=== PATIENT | female | born 1985 | race Caucasian/White ===

== ENCOUNTER 2017-06-28 13:06 | Emergency (ER) | payer OTHER ==
[2017-06-28 13:53] VITALS: BP 110/60
--- NOTE | 2017-06-28 14:47 | UC ---
Back Pain HPI - HPI Summary HPI Summary: Per GURMEET krishna "L SCIATIC NERVE PAIN SINCE YESTERDAY. USING ICE ALTERNATING WITH HEAT WITH MINOR RELIEF." SHe is here w/ her . sx staretd yesterday while she was walking while doing chores caring for their 7 horses. Has had this before. she is 16 wks (1st ). took 1000mgs APAP this AM w/o much relief. pain /. pain radiates into left buttocks, down the side of her thigh, down her calf to just above ankle. + numbing/tingling. no loss bowel/ bladder. no saddle anesthesia sx. - History of Current Complaint Chief Complaint: UCBackPain Stated Complaint: SCIATICA Time Seen by Provider: 06/28/17 14:32 - Allergies/Home Medications Allergies/Adverse Reactions: Allergies Allergy/AdvReac Type Severity Reaction Status Date / Time No Known Allergies Allergy Verified 06/28/17 13:53 PMH/Surg Hx/FS Hx/Imm Hx Previously Healthy: Yes - Surgical History Surgical History: None - Family History Known Family History: Positive: Hypertension Family History: NON CONTRIBUTORY - Social History Alcohol Use: Occasionally Substance Use Type: None Smoking Status (MU): Never Smoked Tobacco - Immunization History Most Recent Influenza Vaccination: NOT CURRENT Review of Systems Constitutional: Negative Skin: Negative Eyes: Negative ENT: Negative Respiratory: Negative Cardiovascular: Negative Gastrointestinal: Negative Genitourinary: Negative Motor: Negative Neurovascular: Negative Musculoskeletal: Negative Neurological: Negative Psychological: Negative Is Patient Immunocompromised?: No All Other Systems Reviewed And Are Negative: Yes Physical Exam Triage Information Reviewed: Yes Appearance: Well-Nourished, Pain Distress Vital Signs: Initial Vital Signs Temp 98.7 F 06/28/17 13:48 Pulse 84 06/28/17 13:48 Resp 18 06/28/17 13:48 BP 110/60 06/28/17 13:48 Pulse Ox 100 06/28/17 13:48 Vital Signs Reviewed: Yes Respiratory Exam: Normal Respiratory: Positive: Lungs clear Cardiovascular Exam: Normal Cardiovascular: Positive: RRR, No Murmur Musculoskeletal Exam: Normal Musculoskeletal: Positive: Strength Intact, Other: - spine NT, increased pain w / flexion, some relief w/ extension. + ipsilateral SLR, neg contralateral. + 1 B /L patellar and equal reflexes. Strength intact. Neurological Exam: Normal Psychological Exam: Normal Skin Exam: Normal Back Pain Course/Dx - Course Course Of Treatment: No xrays or muscle relxant d/t . can cont w/ APAP. showed several exercises. start w/ extensions. states she is in too much pain to do piriformis stretches yet. PT would be a good idea, can ask PCP for referral. - Differential Dx/Diagnosis Differential Diagnosis/HQI/PQRI: Cauda Equina Syndrome, Compressive Cord Syndrome, Strain, Sprain Provider Diagnoses: Sciatica Discharge - Discharge Plan Condition: Stable Disposition: HOME Patient Education Materials: Sciatica (ED), Piriformis Syndrome (ED), Lower Back Exercises (ED) Referrals: Hermes Carrizales MD [Primary Care Provider] - Bruce Lazo MD [Medical Doctor] - Additional Instructions: Please continue taking the tylenol for the pain. Ice 20 mins on/20 mins off. We talked abuot doing gentle back extensions. As your pain improves over the next few days, you can add more stretches in, especially the piriformis stretch I showed you.
== END 2017-06-28 15:05 | disposition home or self-care (01) ==
LOC: UCCORT 13:06
DX: B34.9 Viral infection, unspecified (principal); J02.9 Acute pharyngitis, unspecified; R51 Headache
CPT/HCPCS: 99211; G0463

== ENCOUNTER 2017-12-11 08:45 | Inpatient (IN) | payer OTHER ==
--- NOTE | 2017-12-11 10:08 | HP ---
General Information - General Information Maternal Age: 32 Grav: 1 Para: 0 SAB: 0 IEA: 0 Estimated Due Date: 12/16/17 Determined By: Early Ultrasound Gestational Age in Weeks and Days: 39 Weeks and 2 Days Maternal Blood Type and Rh: A Negative - Results this Serology/RPR Result: Non-Reactive Rubella Result: Immune HBsAg Result: Negative HIV Result: Negative GBS Culture Result: Negative Past Medical History Delivery History: See Records - Primip Pertinent Past Medical History: Non-Contributory - migrain, back pain Pertinent Past Surgical History: None Pertinent Family History: Non-Contributory - Antepartal Records Antepartal Records: Reviewed, Complicated by: - IUGR, Rh -, CF carrier , Rubella equivocal Review of Systems Constitutional: Comfortable CV Complaint: No Respiratory: Shortness of Breath: No Gastrointestinal: No Nausea/Vomiting, Normal Bowel Movement Genitourinary: Leaking Fluid, No Dysuria, No Bleeding Musculoskeletal: No Complaint, Contractions Neurological: No Headache Movement: Normal Exam Allergies/Adverse Reactions: Allergies No Known Allergies Allergy (Verified 06/28/17 13:53) T-98.4, P-78, R-20, BP- 127/71, O2-99 - Measurements Height: 5 ft 6.75 in Weight: 107.501 kg Weight in lbs: [phone] Body Mass Index (BMI): 37.3 Pre- Weight: 109.769 kg Weight Gained This : -5 lbs and 0 ozs - Exam Abdomen: No Upper Quadrant Pain Breast: Breast Exam Deferred CVA: No CVA Tenderness Extremities: Edema - trace pedal edema, nonpitting Heart: Normal Rhythm/Heart Sounds HEENT: No Significant Findings Lungs: Clear Bilaterally Rectal: Rectal Exam Deferred Reflexes: DTR 2+ Thyroid: No Thyromegaly - Abdominal Exam Abdomen Exam: Non-Tender Abdomen Exam Comment: Fundal heaight, S<D, prior suspected IUGR - Ultrasound/Biophysical Profile Ultrasound Status: Not Done - sono done in office today, confirmed vertex position Targeted Exam Findings See L&D Outpatient Visit Provider Note for Findings: N/A Estimated Weight: 6# Membrane Status: SROM Amniotic Fluid Evaluation: Gross Rupture Bleeding/Discharge: None - Cervical exam deferred at this time EFM Findings - External Monitor Findings Baseline Heart Rate: 140 External Monitor Findings: Accelerations Present, No Pattern of Variable or Late Decelerations, Variability Moderate, Baseline Stable Contractions: Regular, Mild, 45-90 Seconds Contraction Frequency: 2-5 Assessment/Plan - Reason for Visit Reason for Visit: Pt experienced gross ROM of clear fluid at 0550 today. - Obstetrical Risk Factors Risk Factors Comment: suspected IUGR - Plan Plan: Early Labor - Date/Time of Admission Date of Admission: 12/11/17 Time of Admission: 09:45
[2017-12-11] MEDS ORDERED: Buffered Lidocaine 0.9% SYRIN* 5 ML/SYR SYRINGE ONE (13:47)
[2017-12-11] MEDS ORDERED: OXYTOCIN* 10 UNITS/ML 1 ML VIAL IM ONE (16:21)
[2017-12-11] MEDS ORDERED: Glycerin ADULT SUPP PR PRN (16:21)
[2017-12-11] MEDS ORDERED: Acetaminophen TAB* 325 MG PO PRN (16:21)
[2017-12-11] MEDS ORDERED: Witch Hazel PAD* JAR TOPICAL PRN (16:21)
[2017-12-11] MEDS ORDERED: Dibucaine 1% 28.35 GM TUBE PR PRN (16:21)
[2017-12-11] MEDS ORDERED: Measles, Mumps,Rubella VACC* 0.5 ML/VIAL SUBCUT ONE (16:21)
[2017-12-11] MEDS ORDERED: Ibuprofen TAB* 600 MG PO PRN (16:21)
[2017-12-11] MEDS ORDERED: OXYTOCIN* 10 UNITS/ML 1 ML VIAL ONE (16:48)
[2017-12-11] MEDS ORDERED: Docusate CAP* 100 MG PO SCH (21:00)
--- NOTE | 2017-12-12 06:32 | PROCNOTE ---
[facility] OB: Delivery Note - Delivery A Date of : 12/11/17 Time of : 15:30 [place] Sex: Male Weight at : 2.814 kg Score 1 Minute: 9 Score 5 Minutes: 10 Gestational Age in Weeks and Days at Delivery: 39 Weeks and 2 Days Delivery Method: Spontaneous Vaginal Labor: Spontaneous Did Patient attempt ?: N/A, No Previous Amniotic Fluid: Clear Estimated Blood Loss: 350 Anesthesia/Analgesia: None, Nitrous-Labor - for 20 minutes only Delivered By: Gabrielle Okeefe - Nursery Level of Nursery: Regular/Bedside - Perineum Perineal Injury: Vaginal Laceration, 1st Degree Perineal Injury Comment: bilat labial with right side only repaired Perineal Repair: By Delivering Practioner - Events Delivery Events of Note: Pitocin Only After Delivery - Additional Delivery Notes Additional Delivery Notes: Pt admitted to labor and delivery with SROM of clear fluid at 39 2/7 weeks gestation. Labor began spontaneously soon after and patient progressed to full dilation. She used nitrous oxide briefly but did not like it and was otherwise unmedicated. Pushing efforts began spontaneously and after 35 minutes pt delivered a viable male in JUAN PABLO position. passed to maternal abdomen, short cord noted. Apgars 9 and 10. After cord pulsation ceased cord clamped and cut and infant moved to mother's chest. Brisk bleeding noted, quickly ceased with fundal massage and administration of oxytocin 10 units IM. First degree perineal laceration and right labial laceration repaired in the usual fashion with absorbable suture after lidocaine used for local anesthesia resulting in hemostasis and tissue integrity. Left labial laceration very minimal and not repaired. At this time, mother and baby are stable.
[2017-12-12 07:14] LABS: ABS Basophils 0 10^3/ul (0-0.2); ABS Eosinophils 0 10^3/ul (0-0.6); ABS Lymphocytes 1.2 10^3/ul (1.0-4.8); ABS Monocytes 0.4 10^3/ul (0-0.8); ABS Neutrophils 9.8 10^3/ul (1.5-7.7); ABS Nucleated RBC 0 10^3/ul; Eosinophil % 0.1 % (0-6); Hematocrit 33 % (35-47); Hemoglobin 11.3 g/dl (12.0-16.0); Lymphocyte % 10.7 % (25-47); Mean Corpuscular HGB Conc 34 g/dl (31-36); Mean Corpuscular Hemoglobin 32 pg (27-31); Mean Corpuscular Volume 93 fL (80-97); Mean Platelet Volume 7.9 um3 (7.4-10.4); Nucleated Red Blood Cells % 0; Platelet Count 264 10^3/ul (150-450); Red Blood Count 3.57 10^6/ul (4.00-5.40); Red Cell Distribution Width 14 % (10.5-15); White Blood Count 11.5 10^3/ul (3.5-10.8)
[2017-12-12] MEDS ORDERED: Ferrous Gluconate TAB* 324 MG TAB PO SCH (09:00)
[2017-12-12 11:43] VITALS: BP 123/68
== END 2017-12-12 16:44 | disposition home or self-care (01) | DRG 560 ==
LOC: MCHOBOUT 08:45 → MCHOB 09:39
PROVIDERS: ADMIT Midwife; ATTEND Midwife
PROC: 0UQMXZZ Repair Vulva, External Approach (ICD-10-PCS; principal; 2017-12-11)
PROC: 0HQ9XZZ Repair Perineum Skin, External Approach (ICD-10-PCS; 2017-12-11)
PROC: 10E0XZZ Delivery of Products of Conception, External Approach (ICD-10-PCS; 2017-12-11)
PROC: 4A1HX4Z Monitoring of Products of Conception, Cardiac Electrical Activity, External Approach (ICD-10-PCS; 2017-12-11)
DX: O36.5930 Maternal care for other known or suspected poor fetal growth, third trimester, not applicable or unspecified (principal); Z3A.39 39 weeks gestation of pregnancy; Z37.0 Single live birth; Z14.1 Cystic fibrosis carrier; O70.0 First degree perineal laceration during delivery
CPT/HCPCS: 36415; 85025; A9270-GY; J2590